=== PATIENT | female | born 1945 | race Caucasian/White ===

== ENCOUNTER 2021-02-25 11:11 | Inpatient (IN) | payer MEDICARE, BC ==
[~2021-02-25] VITALS: Ht 162.6 cm; Wt 74.8 kg
--- NOTE | 2021-02-25 11:15 | NUR ---
DR Benitez at the bedside for MSE.
[2021-02-25] MEDS ORDERED: LOSARTAN (11:27)
[2021-02-25] MEDS ORDERED: HYDROMORPHONE 1 MG/1 ML DISP.SYRIN IV ONE (11:30)
[2021-02-25] MEDS ORDERED: ONDANSETRON 4 MG/2 ML VIAL IV ONE ×2 (11:30→12:15)
[2021-02-25] MEDS ORDERED: ONDANSETRON 4 MG/2 ML VIAL ONE ×2 (11:44→12:16)
[2021-02-25] MEDS ORDERED: HYDROMORPHONE 1 MG/1 ML DISP.SYRIN ONE (11:44)
[2021-02-25 11:57] LABS: ALANINE AMINOTRANSFERASE 25 U/L (14-59); ALKALINE PHOSPHATASE 93 U/L (50-136); ASPARTATE AMINOTRANSFERASE 29 U/L (15-37); BILIRUBIN,DIRECT < 0.1 mg/dL (0.0-0.2); BILIRUBIN,TOTAL 0.3 mg/dL (0.2-1.0); CARBON DIOXIDE 29 mmol/L (21-32); CHLORIDE 106 mmol/L (98-107); CREATININE 0.9 mg/dL (0.6-1.3); GLUCOSE 127 mg/dL (74-106); HEMATOCRIT 39.9 % (31.2-41.9); MEAN CORPUSCULAR HEMOGLOBIN 31.7 uug (24.7-32.8); MEAN CORPUSCULAR VOLUME 94.8 fL (75.5-95.3); PLATELET COUNT (AUTO) 170 K/uL (179-408); POTASSIUM 5.2 mmol/L (3.5-5.1); TOTAL PROTEIN, SERUM 6.7 g/dL (6.4-8.2); UREA NITROGEN, BLOOD 26 mg/dL (7-18)
[2021-02-25] MEDS ORDERED: diphenhydrAMINE 50 MG/1 ML VIAL ONE (13:00)
[2021-02-25] MEDS ORDERED: METOCLOPRAMIDE HCL 10 MG/2 ML VIAL ONE ×2 (13:01→13:21)
[2021-02-25] MEDS ORDERED: METOCLOPRAMIDE HCL 10 MG/2 ML VIAL IV ONE ×2 (13:15)
[2021-02-25] MEDS ORDERED: diphenhydrAMINE 50 MG/1 ML VIAL IV ONE (13:45)
--- NOTE | 2021-02-25 14:26 | NUR ---
Marjorie Potter SWITCHBOARD AND CONTROL ROOM OPERATOR at ther bedside for admit.
[2021-02-25 14:43] LABS: *BILIRUBIN,URIN NEGATIVE (NEGATIVE); *BLOOD, URINE 1+ (NEGATIVE); *CLARITY,URINE CLEAR (CLEAR); *COLOR,URINE DARK YELLOW (YELLOW); *KETONES,URINE 1+ (NEGATIVE); *UROBILINOGEN,URINE 0.2 E.U./dl (NORMAL); LEUKOCYTE ESTERASE ,URINE NEGATIVE (NEGATIVE); NITRITE, URINE NEGATIVE (NEGATIVE); UGLUCOSE NEGATIVE (NEGATIVE)
[2021-02-25] MEDS ORDERED: ONDANSETRON 4 MG/2 ML VIAL IV PRN (14:45)
[2021-02-25 14:53] LABS: BACTERIA,URINE FEW /HPF (NONE SEEN); RBC,URINE 80-100 /HPF (0-3); SQUAMOUS EPITHELIAL CELL,UR FEW /HPF (NONE SEEN); URINE AMORPHOUS URATE FEW /HPF
[2021-02-25 14:54] LABS: MUCUS,URINE FEW /LPF (0-FEW)
--- NOTE | 2021-02-25 16:40 | NUR ---
c-spine collar placed, pt tolerated well. pt moving all extremeties
[2021-02-25] MEDS ORDERED: IV NS 1000 ML 1,000 ML IV ONE (18:15)
--- NOTE | 2021-02-25 18:18 | NUR ---
pt's step daughter, Ester Camara, called and left her number in case of emergrncy,
[2021-02-25] MEDS ORDERED: MORPHINE SULFATE 4 MG/1 ML DISP.SYRIN ONE (20:29)
[2021-02-25] MEDS: MORPHINE SULFATE 2 MG/1 ML DISP.SYRIN IV PRN (20:35)
--- NOTE | 2021-02-25 22:00 | NUR ---
Patient has long arm splint on right upper extermity and left long leg splint with good capillary refills. Patient able to move finger and toes with good sensations.
--- NOTE | 2021-02-26 00:01 | NUR ---
Patient NPO as ordered.
--- NOTE | 2021-02-26 02:00 | NUR ---
Patient has long arm splint on right upper extermity and left long leg splint with good capillary refills(Capillary refill less than 3 seconds.). Patient able to move finger and toes with good sensations.
[2021-02-26] MEDS: MORPHINE SULFATE 2 MG/1 ML DISP.SYRIN IV PRN (05:01)
[2021-02-26] MEDS ORDERED: MORPHINE SULFATE 4 MG/1 ML DISP.SYRIN ONE (05:03)
[2021-02-26 06:28] LABS: HEMATOCRIT 35.5 % (31.2-41.9); MEAN CORPUSCULAR HEMOGLOBIN 30.9 uug (24.7-32.8); MEAN CORPUSCULAR VOLUME 94.9 fL (75.5-95.3); PLATELET COUNT (AUTO) 155 K/uL (179-408)
--- NOTE | 2021-02-26 06:43 | NUR ---
Drained 500ml of clear yellow urine from murcia cath.
[2021-02-26 07:15] LABS: MAGNESIUM 2.4 mg/dL (1.8-2.4); POTASSIUM 5.6 mmol/L (3.5-5.1)
--- NOTE | 2021-02-26 08:10 | NUR ---
Pt resting in bed, no distress noted. Rerolled towel to elevate left ankle slightly.
[2021-02-26] MEDS ORDERED: PANTOPRAZOLE SODIUM 40 MG VIAL ONE (09:25)
[2021-02-26] MEDS: PANTOPRAZOLE SODIUM 40 MG VIAL IV SCH (09:42)
--- NOTE | 2021-02-26 10:15 | NUR ---
Denzel Potter visited pt. bedside, all okay for surgery. Gave report to Tete from Surgery, they will come for pt shortly. Pt to go directly to room #329 after surgery.
[2021-02-26] MEDS ORDERED: MORPHINE SULFATE 4 MG/1 ML DISP.SYRIN IV PRN (10:45)
--- NOTE | 2021-02-26 10:45 | NUR ---
Surgical team came to pick-up pt.
[2021-02-26] MEDS ORDERED: ROCURONIUM BROMIDE 50 MG/5 ML VIAL ONE ×2 (11:15→11:16)
[2021-02-26] MEDS ORDERED: FENTANYL CITRATE 100 MCG/2 ML AMPUL ONE (11:15)
[2021-02-26] MEDS ORDERED: VANCOMYCIN 1000 MG VIAL ONE ×2 (11:16→12:53)
[2021-02-26] MEDS ORDERED: POLYMYXIN B SULFATE 500,000 UNITS VIAL ONE (11:16)
[2021-02-26] MEDS ORDERED: BUPIVACAINE 0.25% 30 ML VIAL ONE (11:17)
[2021-02-26] MEDS ORDERED: IV LACTATED RINGERS SOLUTION 1,000 ML IV PRN (12:45)
[2021-02-26] MEDS ORDERED: ONDANSETRON 4 MG/2 ML VIAL ONE (14:44)
[2021-02-26] MEDS ORDERED: HYDROMORPHONE 1 MG/1 ML DISP.SYRIN ONE (14:44)
[2021-02-26 16:00] VITALS: BP 153/74
--- NOTE | 2021-02-26 16:00 | NUR ---
Patient received from OR s/p ORIF, alert and oriented x4. Reports no discomforts or pain at this time. No acute distress noted. Dressings are C/D/I. Patient on 2L O2 via NC, saturation at 100%. Deleon in place draining clear yellow urine via gravity. Patient has left hand IV intact and patent. Patient has left leg immobilizer with ice. Right arm has sling and elevated on pillows. Patient oriented to room and hospital. Personal belongings and call light within easy reach. Will continue to monitor.
[2021-02-26 16:30] VITALS: BP 155/74
[2021-02-26 17:00] VITALS: BP 145/72
[2021-02-26] MEDS: CLINDAMYCIN PHOSPHATE IV 600 MG in IV DEXTROSE 5% 100 ML IV SCH (19:21)
[2021-02-26] MEDS: IV D5W-0.45% NS +20 KCL 1,000 ML IV PRN (19:22)
[2021-02-26] MEDS ORDERED: CEFAZOLIN 1 G in IV DEXTROSE 5% 50 ML IV SCH (20:00)
[2021-02-26 20:11] VITALS: BP 131/57
[2021-02-27] MEDS ORDERED: GUAIFENESIN SUGAR FREE 100 MG/5 ML UDC PO PRN
[2021-02-27] MEDS ORDERED: MELA5TAB PO (00:33)
[2021-02-27] MEDS: CLINDAMYCIN PHOSPHATE IV 600 MG in IV DEXTROSE 5% 100 ML IV SCH ×2 (00:56→05:33)
[2021-02-27] MEDS: MELATONIN 3 MG TABLET PO SCH ×2 (00:56→21:13)
[2021-02-27 04:43] VITALS: BP 132/63
[2021-02-27] MEDS: BENZOCAINE/MENTH/CETYLPYRD LOZENGE MM PRN (05:30)
[2021-02-27 06:35] LABS: HEMATOCRIT 30.6 % (31.2-41.9); MEAN CORPUSCULAR HEMOGLOBIN 31.2 uug (24.7-32.8); MEAN CORPUSCULAR VOLUME 94.3 fL (75.5-95.3); PLATELET COUNT (AUTO) 128 K/uL (179-408)
[2021-02-27 06:40] LABS: MAGNESIUM 2.2 mg/dL (1.8-2.4); POTASSIUM 4.9 mmol/L (3.5-5.1)
--- NOTE | 2021-02-27 07:56 | NUR ---
SHIFT NOTE: PT IS ALERT AND ORIENTED X4 PT DENIES PAIN NO SIGNS OF RESPIRATORY DISTRESS NOTED. HAS O22LNC SATURATING WELL. PT C/O SORE THROAT ORDER GIVEN FOR ROBITUSSIN COUGH SYRUP AND CEPACOL LOZENGES . PT. HAS RT ARM SLING AND LT ARM IMMOBILIZER. INTACT NO SIGNS OF DRAINAGE AND PT ABLE TO MOVE FINGERS WITH RT ARM SLING AND HAD DRAINAGE FROM SITE DRESSING REINFORCE KEEP ARM ELEVATED . SATURATION IS 100 PERCENT. WILL ENDORSE TO NEXT SHIFT NURSE.
[2021-02-27] MEDS: PANTOPRAZOLE SODIUM 40 MG VIAL IV SCH (08:49)
[2021-02-27] MEDS: MORPHINE SULFATE 4 MG/1 ML DISP.SYRIN IV PRN ×2 (10:41→20:37)
[2021-02-27 11:28] VITALS: BP 147/56
[2021-02-27] MEDS: DOCUSATE SODIUM 100 MG CAPSULE PO SCH ×2 (14:08→21:13)
[2021-02-27 15:27] VITALS: BP 128/61
--- NOTE | 2021-02-27 18:00 | NUR ---
Patient is alert, oriented x 4, not in any form of distress, on room air. She complained of right arm pain and left leg pain, given PRN IV morphine as ordered with noted relief. Peripheral IV line G22 on left forearm intact and patent. Deleon catheter in place and patent draining clear yellow urine. Needs attended to promptly. Patient compliant with medications and care. Patient seen by COVERING AND LINING SUPERVISOR Potter update given with no new order. Sling on the right arm and left knee immobilizer in place. Patient participated with PT today, maintained NWB on RUE and LLE. Call light and frequently used items placed within patient's reach. Home medications put in and COVERING AND LINING SUPERVISOR Potter made aware and per COVERING AND LINING SUPERVISOR he will reconcile. Will continue to monitor and will endorse accordingly.
[2021-02-27] MEDS ORDERED: OSTERA PO (18:43)
[2021-02-27] MEDS ORDERED: LOSA25TA27 PO (18:43)
[2021-02-27] MEDS ORDERED: LORA10TA7 PO (18:43)
[2021-02-27] MEDS ORDERED: RAW CALCIUM PO (18:43)
[2021-02-27] MEDS ORDERED: ATOR10TA PO (18:43)
[2021-02-27] MEDS ORDERED: OMEG-49 PO (18:43)
[2021-02-27] MEDS ORDERED: [UNRECOGNIZED DRUG - OTHER] PO (18:43)
[2021-02-27] MEDS ORDERED: LIPA1CAP36 PO (18:43)
[2021-02-27] MEDS ORDERED: [UNRECOGNIZED DRUG - OTHER] PO (18:43)
[2021-02-27] MEDS ORDERED: PROP60CA38 PO (18:43)
[2021-02-27] MEDS ORDERED: NIACIN PO (18:43)
[2021-02-27] MEDS ORDERED: LACT1CAP69 PO (18:43)
[2021-02-27] MEDS ORDERED: [UNRECOGNIZED DRUG - OTHER] PO (18:43)
[2021-02-27] MEDS ORDERED: CELE200C PO (18:43)
[2021-02-27] MEDS ORDERED: OMEP40CA21 PO (18:43)
[2021-02-27] MEDS ORDERED: MELATONIN PO PRN (19:45)
[2021-02-27 20:20] VITALS: BP 127/49
[2021-02-27] MEDS: ATORVASTATIN 10 MG TABLET PO SCH (21:13)
[2021-02-27] MEDS: IV D5W-0.45% NS +20 KCL 1,000 ML IV PRN (21:37)
[2021-02-28 04:56] VITALS: BP 127/45
[2021-02-28] MEDS: PANTOPRAZOLE SODIUM 40 MG TABLET.DR PO SCH (06:50)
[2021-02-28 07:13] LABS: HEMATOCRIT 29.2 % (31.2-41.9); MEAN CORPUSCULAR HEMOGLOBIN 32.4 uug (24.7-32.8); PLATELET COUNT (AUTO) 121 K/uL (179-408)
--- NOTE | 2021-02-28 07:30 | NUR ---
Received patient alert and oriented x4, on RA with no SOB or difficulties breathing. No complaints of pain or discomforts at this time. No acute distress noted. Left FA IV is intact, running IVF at 75 mL/h as ordered with no redness or swelling noted at this time. Deleon catheter in place draining clear yellow urine via gravity. Sling is on the right arm, elevated on pillows. Immobilizer on left knee in place. Call light and personal belongings within easy reach. Will continue to monitor.
[2021-02-28 08:56] LABS: CREATININE 0.8 mg/dL (0.6-1.3); MAGNESIUM 2.2 mg/dL (1.8-2.4); POTASSIUM 4.8 mmol/L (3.5-5.1)
[2021-02-28] MEDS ORDERED: Medication Not On Formulary EA (Lactobacillus Acidophilus (Probiotic) 1 EACH) PO SCH (09:00)
[2021-02-28] MEDS ORDERED: PROTEASE PO SCH (09:00)
[2021-02-28] MEDS ORDERED: AMYLASE PO SCH (09:00)
[2021-02-28] MEDS ORDERED: LIPASE PO SCH (09:00)
[2021-02-28 09:04] VITALS: BP 108/68
[2021-02-28] MEDS: LORATADINE 10 MG TABLET PO SCH (09:34)
[2021-02-28] MEDS: ACIDOPHILUS/BULGARICUS CHEW TAB PO SCH ×2 (09:34→17:41)
[2021-02-28] MEDS: DOCUSATE SODIUM 100 MG CAPSULE PO SCH ×2 (09:34→21:57)
[2021-02-28] MEDS: MORPHINE SULFATE 4 MG/1 ML DISP.SYRIN IV PRN (15:58)
[2021-02-28 16:11] VITALS: BP 134/66
[2021-02-28] MEDS: PROPRANOLOL LA 60 MG CAP.SA.24H PO SCH (17:42)
[2021-02-28] MEDS: LOSARTAN POTASSIUM 25 MG TABLET PO SCH (17:42)
[2021-02-28] MEDS ORDERED: NIACIN PO SCH (18:00)
[2021-02-28 20:05] VITALS: BP 132/51
[2021-02-28] MEDS: BENZOCAINE/MENTH/CETYLPYRD LOZENGE MM PRN (21:57)
[2021-02-28] MEDS: MELATONIN 3 MG TABLET PO SCH (21:57)
[2021-02-28] MEDS: ATORVASTATIN 10 MG TABLET PO SCH (21:57)
[2021-03-01 04:05] VITALS: BP 115/48
[2021-03-01] MEDS: PANTOPRAZOLE SODIUM 40 MG TABLET.DR PO SCH (06:39)
--- NOTE | 2021-03-01 07:27 | NUR ---
RECEIVED REPORT FROM AM NURSE FERNANDA PT IS ALERT AND ORIENTED X4 HAS RT SLING WITH IS ELEVATED ON PILLOW WITH ICE PT IS ABLE TO MOVE FINGERS HAND IS WARM.PT HAS LEG IMMOBILIZER ABLE TO MOVE TOES AND HAS PEDAL PULSE.PT STATES"i HAD PT THEY ADJUSTED THE IMMOBILIZER SAID IT WAS TOO TIGHT MY LEG FEELS MUCH BETTER. PT HAS VO DRAINING CLEAR YELLOW URINE NO SIGNS OF INFILTRATION NOTED. PT HAD IV FLUIDS OF D5NS 20K WHICH IS COMPLETED. NO SIGNS OF REDNESS FROM THE SIGHT. WILL ENDORSE TO AM NURSE.
--- NOTE | 2021-03-01 07:40 | NUR ---
Received awake in bed, eating. No respiratory distress. Very pleasant. Denies pain at this time. Right arm in sling, ice and elevated on pillow. Hand is warm and pulse noted. Patient is able to move fingers. Left leg in immobilizer iced and elevated on a pillow. Pedal pulses noted and she is able to move her toes. Deleon catheter draining clear yellow urine. Iv is intact. Safety measures in place. Kept comfortable. Call light within reach. Will continue to monitor.
[2021-03-01] MEDS: LORATADINE 10 MG TABLET PO SCH (09:17)
[2021-03-01] MEDS: ACIDOPHILUS/BULGARICUS CHEW TAB PO SCH ×2 (09:17→17:27)
[2021-03-01] MEDS: DOCUSATE SODIUM 100 MG CAPSULE PO SCH ×2 (09:17→21:42)
[2021-03-01 11:00] VITALS: BP 110/44
[2021-03-01] MEDS: MORPHINE SULFATE 4 MG/1 ML DISP.SYRIN IV PRN ×2 (11:14→22:52)
[2021-03-01] MEDS ORDERED: MAGNESIUM HYDROXIDE 30 ML LIQUID UDC PO ONE (12:45)
--- NOTE | 2021-03-01 14:43 | NUR ---
Patient brought home meds, inventoried and sealed in front of the patient. Endorsed to pharmacy.
[2021-03-01] MEDS ORDERED: [UNRECOGNIZED DRUG - OTHER] PO (14:55)
[2021-03-01] MEDS ORDERED: CHOL5POW PO (14:55)
[2021-03-01 15:00] VITALS: BP 133/52
[2021-03-01] MEDS: PROPRANOLOL LA 60 MG CAP.SA.24H PO SCH (17:27)
[2021-03-01] MEDS: LOSARTAN POTASSIUM 25 MG TABLET PO SCH (17:28)
[2021-03-01] MEDS ORDERED: PANTOPRAZOLE SODIUM 40 MG TABLET.DR PO SCH (17:30)
[2021-03-01] MEDS: ENOXAPARIN SODIUM 40 MG/0.4 ML DISP.SYRIN SQ SCH (17:40)
[2021-03-01] MEDS ORDERED: NIACIN 500 MG PO SCH (18:00)
--- NOTE | 2021-03-01 18:50 | NUR ---
Patient alert and oriented x4. No acute distress. Denies pain or sob. Right arm still swollen kept on sling and elevated on pillow with ice on it. Pulse noted and able to move fingers without difficulty. Left leg in cast and elevated on pillow also with ice on it. Still swollen. Pulse noted. Able to move toes without difficulty. Deleon catheter intact and draining clear yellow urine. Patient very pleasant and cooperative throughout the shift. Tolerated rehab. Safety and fall measures maintained. Kept comfortable. Call light within easy reach.
[2021-03-01 20:00] VITALS: BP 116/52
--- NOTE | 2021-03-01 20:00 | NUR ---
RECEIVED PATIENT ALERT AND ORIENTED X4 PT LEFT LEG IS IMMOBILIZED APPLIED ICE AND PT ABLE TO MOVE TOES NO SIGNS OF DISCOLORATION NOTED. PT RT ARM IS STILL IN SLING AND DENIES PAIN AT THIS TIME WILL CONTINUE TO MONITOR FOR SAFETY AND FALLS.
[2021-03-01] MEDS: BENZOCAINE/MENTH/CETYLPYRD LOZENGE MM PRN (21:42)
[2021-03-01] MEDS: MELATONIN 3 MG TABLET PO SCH (21:42)
[2021-03-01] MEDS: ATORVASTATIN 10 MG TABLET PO SCH (21:42)
--- NOTE | 2021-03-01 23:00 | NUR ---
PT C/O LEFT LEG PAIN AND WAS GIVEN 4MG OF MORPHINE FOR PAIN 04/03 RECHECKED PT WAS ASLEEP NO SIGNS OF ADVERSE REACTION FROM MEDICATION.
[2021-03-02 04:00] VITALS: BP 109/51
[2021-03-02 06:51] LABS: HEMATOCRIT 26.8 % (31.2-41.9); MEAN CORPUSCULAR HEMOGLOBIN 32.1 uug (24.7-32.8); MEAN CORPUSCULAR VOLUME 94.9 fL (75.5-95.3); PLATELET COUNT (AUTO) 135 K/uL (179-408)
[2021-03-02 07:09] LABS: CREATININE 0.9 mg/dL (0.6-1.3); MAGNESIUM 2.2 mg/dL (1.8-2.4); POTASSIUM 5.4 mmol/L (3.5-5.1)
[2021-03-02] MEDS ORDERED: PANCRELIPASE PO SCH (08:00)
[2021-03-02] MEDS ORDERED: [UNRECOGNIZED DRUG - OTHER] PO SCH (08:00)
[2021-03-02 08:54] VITALS: BP 101/51
[2021-03-02] MEDS ORDERED: IV NS 1000 ML 1,000 ML IV PRN (10:00)
[2021-03-02] MEDS ORDERED: IV NORMAL SALINE 500 ML IV ONE ×2 (10:00→12:00)
[2021-03-02] MEDS: ACIDOPHILUS/BULGARICUS CHEW TAB PO SCH (10:21)
[2021-03-02] MEDS: LORATADINE 10 MG TABLET PO SCH (10:22)
[2021-03-02] MEDS: DOCUSATE SODIUM 100 MG CAPSULE PO SCH (10:22)
[2021-03-02] MEDS: MORPHINE SULFATE 4 MG/1 ML DISP.SYRIN IV PRN (11:04)
[2021-03-02] MEDS: ENOXAPARIN SODIUM 40 MG/0.4 ML DISP.SYRIN SQ SCH (11:32)
[2021-03-02 12:00] VITALS: BP 113/57
[2021-03-02 14:48] VITALS: BP 119/49
[2021-03-02] MEDS ORDERED: PANTOPRAZOLE SODIUM 40 MG TABLET.DR PO SCH (17:30)
== END 2021-03-02 16:00 | DRG 492 ==
LOC: ER 11:11 → TRANSITION 20:16 → MEDSURG3 02-26 17:12
PROVIDERS: ADMIT Nurse Practitioner Family; ATTEND Nurse Practitioner Family
PROC: 0PSK04Z Reposition Right Ulna with Internal Fixation Device, Open Approach (ICD-10-PCS; principal; 2021-02-26)
PROC: 0QSH04Z Reposition Left Tibia with Internal Fixation Device, Open Approach (ICD-10-PCS; principal; 2021-02-26)
DX: S82.102A Unspecified fracture of upper end of left tibia, initial encounter for closed fracture (principal); N17.0 Acute kidney failure with tubular necrosis; E44.1 Mild protein-calorie malnutrition; S82.832A Other fracture of upper and lower end of left fibula, initial encounter for closed fracture; S52.021A Displaced fracture of olecranon process without intraarticular extension of right ulna, initial encounter for closed fracture; S52.131A Displaced fracture of neck of right radius, initial encounter for closed fracture; W01.0XXA Fall on same level from slipping, tripping and stumbling without subsequent striking against object, initial encounter; E87.5 Hyperkalemia; Y92.481 Parking lot as the place of occurrence of the external cause; D69.6 Thrombocytopenia, unspecified; E78.5 Hyperlipidemia, unspecified; N32.81 Overactive bladder; Z20.822 Contact with and (suspected) exposure to COVID-19; M16.0 Bilateral primary osteoarthritis of hip; Z79.899 Other long term (current) drug therapy; Z88.0 Allergy status to penicillin
CPT/HCPCS: 36415; 51702; 71045; 73070; 73080; 73560; 83735; 85025; 85730; 93005; 97161; A4649; C1713; C9113; G0378; J0690; J1170; J1200; J1650; J2270; J2405; J2765; J3010; J3370; J3490; J7030; J7040; J7060